=== PATIENT | female | born 1990 | race Caucasian/White ===

== ENCOUNTER 2016-12-27 23:44 | Emergency (ER) | payer MEDICAID ==
[~2016-12-27] VITALS: Ht 149.9 cm; Wt 66.8 kg
[2016-12-28] MEDS ORDERED: ALPR-475 PO (00:18)
[2016-12-28] MEDS ORDERED: ALBU8.5H3 INH (00:18)
[2016-12-28] MEDS ORDERED: MORPHINE SULFATE 4 MG/ML, 1ML IVPush PRN (00:30)
[2016-12-28] MEDS ORDERED: SODIUM CHLORIDE FLUSH 10ML SYR IVF ONE (00:30)
[2016-12-28] MEDS ORDERED: ONDANSETRON 2MG/ML, 2ML IVPush ONE (00:30)
[2016-12-28] MEDS ORDERED: SODIUM CHLORIDE 0.9% 1,000ML IVBOLUS ONE (00:30)
[2016-12-28] MEDS ORDERED: MORPHINE SULFATE 4 MG/ML, 1ML ONE (00:36)
[2016-12-28] MEDS ORDERED: ONDANSETRON 2MG/ML, 2ML ONE (00:36)
[2016-12-28 00:39] LABS: HCG UR OBC PASS; PATH.CAST-FLAG NOT PRESENT; SPERM-FLAG NOT PRESENT; SRC-FLAG NOT PRESENT; XTAL-FLAG NOT PRESENT; YLC-FLAG NOT PRESENT
[2016-12-28 01:10] LABS: HEMATOCRIT 43.2 % (34.6-47.8); HEMOGLOBIN 14.6 g/dL (11.7-16.4); WHITE BLOOD COUNT 10.2 x10^3/uL (3.4-10)
[2016-12-28 01:21] LABS: BLOOD UREA NITROGEN 9 mg/dL (7-18)
[2016-12-28 01:25] LABS: ASPARTATE AMINO TRANSFERASE 11 U/L (15-37)
[2016-12-28 01:58] VITALS: BP 104/72
== END 2016-12-28 02:02 | disposition home or self-care (01) ==
LOC: ED 23:59
DX: R10.11 Right upper quadrant pain (principal); R10.13 Epigastric pain; F41.9 Anxiety disorder, unspecified; J45.909 Unspecified asthma, uncomplicated; F17.200 Nicotine dependence, unspecified, uncomplicated
CPT/HCPCS: 36415; 76700; 80053; 81003; 81025; 83690; 85025; 85610; 85730; 87086; 93005; 96361; 96374; 96375; 99285; J2405; J7030